=== PATIENT | male | born 1995 | race Caucasian/White ===

== ENCOUNTER 2018-10-30 15:18 | Emergency (ER) | payer MEDICARE, OTHER ==
[~2018-10-30] VITALS: Ht 172.7 cm; Wt 59.0 kg
[~2018-10-30 15:18] MED LIST: ALBU90OI INH; ALBU90OI6 INH; Amoxicillin500 M1 PO; Amoxicillin500 MG PO; Benadryl25 MG PO; CEPH500 PO; ERGO50000 PO; FLUT110OIA INH; FLUT1DIS5 INH; GUAI600T33 PO; HYDPAM25; INTUNIV4 MG PO; LIDO2L TOP; Naprosyn500 MG PO; PRED20 PO; Pepcid20 MG PO; Prednisone10 MG PO; Prednisone20 MG PO; Veetids 500500 MG PO; Zovirax400 MG PO
[2018-10-30] MEDS ORDERED: Zovirax400 MG PO (15:26)
== END 2018-10-30 15:28 | disposition home or self-care (01) ==
LOC: ER 15:18
DX: B00.9 Herpesviral infection, unspecified (principal); Z88.8 Allergy status to other drugs, medicaments and biological substances; Z88.1 Allergy status to other antibiotic agents; Z79.899 Other long term (current) drug therapy; J45.909 Unspecified asthma, uncomplicated; F17.200 Nicotine dependence, unspecified, uncomplicated
CPT/HCPCS: 99282

== ENCOUNTER → 2019-09-01 | Outpatient (CLI) | payer MEDICARE, OTHER | END | disposition home or self-care (01) | LOC: LAB 18:00 → LAB SHORT 18:00 | DX: J02.9 Acute pharyngitis, unspecified (principal) | CPT/HCPCS: 87081 ==

== ENCOUNTER → 2020-08-24 | Outpatient (CLI) | payer MEDICARE, OTHER | END | disposition home or self-care (01) | LOC: LAB 08:30 → LAB SHORT 08:30 | DX: J02.9 Acute pharyngitis, unspecified (principal) | CPT/HCPCS: 87081 ==

== ENCOUNTER → 2022-10-24 | Outpatient (CLI) | payer MEDICARE, OTHER | END | disposition home or self-care (01) | LOC: LAB 12:40 → LAB SHORT 12:40 | DX: J02.9 Acute pharyngitis, unspecified (principal) | CPT/HCPCS: 87081 ==

== ENCOUNTER → 2023-04-26 | Outpatient (CLI) | payer MEDICARE, OTHER | END | disposition home or self-care (01) | LOC: LAB SHORT 09:16 → LAB 09:16 | DX: J02.9 Acute pharyngitis, unspecified (principal) | CPT/HCPCS: 87081 ==

== ENCOUNTER 2023-05-21 18:03 | Emergency (ER) | payer MEDICARE, OTHER ==
[~2023-05-21] VITALS: Ht 172.7 cm; Wt 61.2 kg
[2023-05-21 18:30] VITALS: BP 142/102
== END 2023-05-21 19:25 | disposition home or self-care (01) ==
LOC: ER 18:03
DX: R00.2 Palpitations (principal); J06.9 Acute upper respiratory infection, unspecified; Z88.8 Allergy status to other drugs, medicaments and biological substances; Z88.1 Allergy status to other antibiotic agents; Z79.899 Other long term (current) drug therapy
CPT/HCPCS: 93005; 93010; 99284-25

== ENCOUNTER → 2024-09-28 | Outpatient (CLI) | payer OTHER ==
[2024-09-28 16:26] LABS: BASOPHILS ABSOLUTE AUTO 0.04 K/mm3 (0.00-0.23); BASOPHILS PERCENT AUTO 1 % (0-2); EOSINOPHILS ABSOLUTE AUTO 0.07 K/mm3 (0.00-0.68); EOSINOPHILS PERCENT AUTO 2 % (0-6); Hematocrit 44.6 % (37.0-53.0); Hemoglobin 15.6 g/dL (13.5-17.5); IMMATURE GRAN ABSOLUTE AUTO 0.01 K/mm3 (0.00-0.10); IMMATURE GRAN PERCENT AUTO 0 % (0-1); LYMPHOCYTES ABSOLUTE AUTO 1.19 K/mm3 (0.84-5.20); LYMPHOCYTES PERCENT AUTO 30 % (21-46); MONOCYTES ABSOLUTE AUTO 0.45 K/mm3 (0.16-1.47); MONOCYTES PERCENT AUTO 12 % (4-13); Mean Corpuscular HGB 29.9 pg (26.0-34.0); Mean Corpuscular Volume 86 fL (80-100); Mean Platelet Volume 9.7 fL (9.1-12.4); NEUTROPHILS ABSOLUTE AUTO 2.16 K/mm3 (1.96-9.15); NEUTROPHILS PERCENT AUTO 55 % (41-73); Platelet Count 302 K/mm3 (150-400); RDW Coefficient Variation 12.9 % (11.7-14.2); RDW Standard Deviation 39.9 fL (35.1-46.3); Red Blood Cell Count 5.21 M/mm3 (4.30-5.90); White Blood Cell Count 3.92 K/mm3 (4.00-11.30)
[2024-09-28 19:17] LABS: Albumin, Blood 4.4 g/dL (3.4-5.0); Albumin/Globulin Ratio 1.3 (0.8-1.8); Bilirubin, Total 0.3 mg/dL (0.1-1.0); Calcium, Blood 9.3 mg/dL (8.5-10.1); Creatinine, Blood 0.74 mg/dL (0.60-1.20); Globulin, Blood 3.4 g/dL (2.2-4.0); Potassium, Blood 3.5 mmol/L (3.5-5.5); Thyroid Stimulating Hormone 1.85 uIU/mL (0.360-4.800); Total Protein, Blood 7.8 g/dL (6.4-8.2)
[2024-09-30 09:02] LABS: HEPATITIS C AB CIA INTERP Negative (Negative); HEPATITIS C ANTIBODY CIA INDEX 0.05 IV
[2024-09-30 18:26] LABS: HIV 1,2 COMBO ANTIGEN/ANTIBODY Negative (Negative)
== END ==
LOC: LAB SHORT 14:23 → LAB 14:23
PROVIDERS: Student in an Organized Health Care Education/Training Program
DX: Z00.01 Encounter for general adult medical examination with abnormal findings (principal); Z11.4 Encounter for screening for human immunodeficiency virus [HIV]; Z11.59 Encounter for screening for other viral diseases; R00.2 Palpitations
CPT/HCPCS: 80053; 84443; 85025; 86803; 87389